=== PATIENT | male | born 1970 | race Caucasian/White ===

== ENCOUNTER 2024-07-07 09:31 | Emergency (ER) | payer OTHER, SELFPAY ==
--- NOTE | ~2024-07-07 | XR_ITS ---
CLINICAL HISTORY: foosh 2 views left forearm Comparison: None Findings: No fracture or dislocation. No periostitis or bony destruction. Normal bone mineraliztion and soft tissues. No radiopaque foreign bodies. Impression: 1. No fractures. Malalignment or bony destructive process left forearm. This document has been electronically signed by: Nikhil Conteh MD on 07/07/2024 11:02:22
--- NOTE | ~2024-07-07 | XR_ITS ---
CLINICAL HISTORY: foosh 3 views left hand Comparison: CR - XR WRIST LT MIN 3V - 07/07/24 09:51 EDT Findings: No fractures, subluxations or dislocations. No periostitis or bony destruction. Joint intervals are preserved. Mild joint space narrowing of the interphalangeal joints. Ulnar styloid perserved. Normal bone mineralization and soft tissues. Carpal bones unremarkable.. No radiopaque foreign body. Impression: 1. No acute fractures or carpal malalignment. This document has been electronically signed by: Nikhil Conteh MD on 07/07/2024 10:58:58
--- NOTE | ~2024-07-07 | XR_ITS ---
CLINICAL HISTORY: fall 4 views left wrist Comparison: None Findings: No carpal bone fractures or carpal malalignment. Radiocarpal joint intact Radial and ulnar styloid preserved. No bony erosive changes. Bone mineralization and soft tissues within normal limits. No radiopaque foreign body. Impression: 1. No acute fractures or carpal malalignment This document has been electronically signed by: Nikhil Conteh MD on 07/07/2024 10:25:48
[2024-07-07 09:35] VITALS: BP 108/72; PULSE 65; RESP 18; TEMP 36.4; O2SAT 100; BMI 18.2
[2024-07-07] MEDS: Ibuprofen 600 MG TABLET PO (09:52)
--- NOTE | 2024-07-07 10:06 | ED_ITS ---
HPI - Extremity Problem General Chief complaint: Extremity Injury, Upper Stated complaint: wrist inj Time Seen by Provider: 07/07/24 09:56 Source: patient, family, RN notes reviewed and old records reviewed Mode of arrival: ambulatory History of Present Illness ED Provider: Kadi Womack PA-C HPI Narrative: 53-year-old male no significant past medical history presenting to the ED complaining of left wrist swelling and pain s/p mechanical fall, FOOSH, while playing basketball around 1500 yesterday. Denies head trauma or LOC. Denies injury to other area. Reports associated paresthesias to and pancreas. Admits to taking oxycodone around midnight last night. Denies fever, chills Related Data Previous Rx's ?Medication ?Instructions ?Recorded acetaminophen 500 mg tablet 500 mg PO Q6H PRN fever or pain 07/07/24 (Tylenol Extra Strength) #14 tabs ibuprofen 800 mg tablet 800 mg PO Q8H PRN pain #14 tabs 07/07/24 oxycodone 5 mg tablet 5 mg PO Q6H PRN pain (scale score 07/07/24 7-10) 3 days #9 tabs Allergies Allergy/AdvReac Type Severity Reaction Status Date / Time No Known Allergies Allergy Verified 07/07/24 09:38 Review of Systems Review of Systems: Yes all other systems are reviewed and are negative Constitutional: Constitutional: Reports as per [facility] Past Medical History Attestation statement: The following information was validated with the patient. Source: old records reviewed Physical Exam Vital Signs: Vital Signs: Last Vital Signs Temp 0 F L 07/07/24 13:05 Pulse 58 07/07/24 13:05 Resp 14 07/07/24 13:05 BP 110/69 07/07/24 13:05 Pulse Ox 97 07/07/24 13:05 O2 Del Method Room Air 07/07/24 13:05 BMI result Body Mass Index 18.2 Const: General: cooperative, healthy appearing and no acute distress Orientation/consciousness: patient oriented x3 Limitations: no limitations HEENT: Head: Yes normal to inspection and Yes atraumatic Ears: hearing grossly normal bilaterally General nose exam: Normal external nose present Face and sinus: Yes normal facial exam Eyes: General: appearance normal, both eyes and all related structures EOM: EOMs intact bilaterally Neck: Neck: Yes normal visual inspection and Yes no meningeal signs Resp: Effort & Inspection: normal respiratory effort and no respiratory distress Cardio: Rate: regular rate Skin: Rashes: no rashes Wounds: no wounds Neuro: General: patient oriented x3, tone normal and no meningeal signs Cranial nerves: Yes CN's II-XII intact bilaterally Gait exam (Neuro): Normal gait present Extrem: Other: + appreciable swelling to left wrist/dis kellie forearm. Superficial abrasion to left palm. + tenderness to distal forearm, wrist, a nd thenar eminence. Neurovascularly intact. No overt snuffbox ttp Unable to give thumbs up, difficulty with [id number] opposition secondary to pain and swelling Left shoulder/humerus and elbow nontender Course Course Course Narrative: XR forearm LT 2V Impression: 1. No fractures. Malalignment or bony destructive process left forearm XR hand LT min 3V Impression: 1. No acute fractures or carpal malalignment. XR wrist LT min 3V Impression: 1. No acute fractures or carpal malalignment > Velcro thumb spica wrist splint applied for comfort / stability. Recommended close orthopedic follow-up Results discussed with patient including worrisome signs and symptoms and strict return precautions, and when to return to the emergency department. They verbalized understanding and feel safe for discharge at this time. Medications Administered Discontinued Medications Generic Name Dose Route Start Last Admin Trade Name Ese PRN Reason Stop Dose Admin Acetaminophen 325 mg 07/07/24 10:13 07/07/24 11:01 Acetaminophen 325 Mg Tablet PO 07/07/24 10:14 325 mg ONCE ONE Administration Ibuprofen 600 mg 07/07/24 09:38 07/07/24 09:52 Ibuprofen 600 Mg Tablet PO 07/07/24 09:39 600 mg ONCE ONE Administration Oxycodone HCl 5 mg 07/07/24 10:12 07/07/24 11:02 Oxycodone Hcl Immed Release 5 Mg Tablet PO 07/07/24 10:13 5 mg ONCE ONE Administration Medical Decision Making Medical Decision Making MDM Narrative: 53-year-old male no significant past medical history presenting to the ED complaining of left wrist swelling and pain s/p mechanical fall, FOOSH, while playing basketball around 1500 yesterday. On exam vital signs stable, NAD, nontoxic appearing, physical exam as noted above. Concern for fracture vs sprain. Lower suspicion for dislocation. No evidence of septic joint/arthritis. Unlikely DVT Plan: X-rays, pain controlled Please refer to course for remaining clinical decision making, interpretation of labs/imaging results, and discussions with consultants and/or family members. Differential Diagnosis Differential Diagnoses: The differential diagnosis associated with the presentation includes As above Independent Interpretation I performed an independent interpretation of an: Plain X-Ray Radiology Impression Discussion of test interpretation with radiology: I have reviewed the radiologist's reading. External Record Review External record reviewed: Inpatient record, Office record, Outpatient record, Prior outpatient labs, Prior outpatient radiology, Primary care record and Outside ED record Tests considered The following testing was considered but not selected: As above Prescription Management I considered prescription management with: Pain Medication Chronic Conditions Patient?s care impacted by: Other Social Determinants Patient?s care significantly limited by Social Determinants of Health including: Other Social Determinant of Health Procedures Orthopedic Splinting/Casting Injury #1: Side: left Upper Extremity Injury Location: wrist Upper Extremity Immobilizer: thumb spica Discharge Plan Discharge Clinical Impression: Sprain of left wrist Patient Disposition: Home, Self-Care Instructions: Wrist Sprain (ED) Additional Instructions: Your x-rays are unremarkable Please wear wrist splint at all times, you may take off to shower and sleep Ice and elevate Take ibuprofen and Tylenol as needed for pain/swelling Oxycodone as an opiate pain medication, take only when pain is severe for the next 3 days It is very important you follow up with Orthopedics. X-rays do not show fra cture however there could be a small hairline fracture that we did not appreciate. If pain persists or worsens or area begins to look infected, is red, swollen, pain is unbearable or warm return to the ED Prescriptions: New ibuprofen 800 mg tablet 800 mg PO Q8H PRN (Reason: pain) Qty: 14 0RF acetaminophen [Tylenol Extra Strength] 500 mg tablet 500 mg PO Q6H PRN (Reason: fever or pain) Qty: 14 0RF oxycodone 5 mg tablet 5 mg PO Q6H PRN (Reason: pain (scale score 7-10)) 3 Days Qty: 9 0RF Rx Instructions: Partial Fill upon patient request. Referrals: [facility] [Provider Group] - 1 week Stand Alone Forms: Work/School Release Interventions: ED Discharge Assessment Last Done: 07/07/24 13:05 Discharge Date/Time: 07/07/24 13:05 Print Language: Spanish
[2024-07-07 10:49] VITALS: BP 100/66; PULSE 58; RESP 14; O2SAT 98
[2024-07-07] MEDS: Acetaminophen 325 MG TABLET PO (11:01)
[2024-07-07] MEDS: oxyCODONE HCl Immed Release 5 MG TABLET PO (11:02)
[2024-07-07 13:00] VITALS: BP 110/69; PULSE 58; RESP 14; O2SAT 97
[2024-07-07 13:05] VITALS: BP 110/69; PULSE 58; RESP 14; TEMP -17.7; TEMP 0; O2SAT 97
== END 2024-07-07 13:05 | disposition home or self-care (01) ==
PROVIDERS: Emergency Provider Emergency Medicine; PCP Internal Medicine
DX: S63.502A Unspecified sprain of left wrist, initial encounter (principal); M25.532 Pain in left wrist; X50.3XXA Overexertion from repetitive movements, initial encounter; Y93.02 Activity, running; Y92.310 Basketball court as the place of occurrence of the external cause; Y99.8 Other external cause status
CPT/HCPCS: 29125; 73090; 73110; 73130; 99283; 99284

== ENCOUNTER → 2024-07-07 09:52 | Outpatient (BNV) | payer OTHER, SELFPAY | PROVIDERS: Emergency Provider Emergency Medicine; PCP Internal Medicine; Visit Provider Radiology Diagnostic Radiology | DX: S69.92XA Unspecified injury of left wrist, hand and finger(s), initial encounter (principal); S59.912A Unspecified injury of left forearm, initial encounter | CPT/HCPCS: 73090; 73110; 73130 ==

== ENCOUNTER 2024-07-16 13:32 | Outpatient (AMB) | payer OTHER, SELFPAY ==
--- NOTE | 2024-07-16 13:49 | MHC.OFFVIS ---
Vital Signs 07/16/24 13:55 Height 6 ft Weight 145 lb BMI 19.7 Handedness Right Intake Visit Reasons: ER f/u: Lt wrist sprain DOI: 07/06/24 Intake Note: Tommy is a 53 year old right hand dominant male who presents today for an emergency department follow up for his left wrist injury s/p fall DOI: 07/06/24. Patient reports falling while playing basketball, landing on his left wrist. [facility] [place] provided him a brace to wear until he followed up with orthopedics. He expresses discomfort if he moves his wrist, discomfort with gripping, squeezing objects has become a challenge for him and he reports stiffness as well. States he has been utilizing his brace so his movement has been restricted. Denies any numbness and tingling in the left wrist. Allergies No Known Allergies Allergy (Verified 07/16/24 13:55) HPI HPI ER f/u: Lt wrist sprain DOI: 07/06/24: Details: Tommy is a 53 year old right hand dominant male who presents today for an emergency department follow up for his left wrist injury s/p fall DOI: 07/06/24. Patient reports falling while playing basketball, landing on his left wrist. [facility] [place] [facility] provided him a brace to wear until he followed up with orthopedics. He expresses discomfort if he moves his wrist, discomfort with gripping, squeezing objects has become a challenge for him and he reports stiffness as well. States he has been utilizing his brace so his movement has been restricted. Denies any numbness and tingling in the left wrist. 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 He initially sought care on Monday due to significant swelling. Prior radiographs were negative for fracture, yet continued tenderness and localized swelling particularly in the anatomical snuff box area suggest a potential scaphoid fracture. Despite subsidence of some swelling, tenderness persists, especially with minor pressure distal to the wrist. Repeat X-rays today still did not clearly show a fracture. There remains potential for an occult scaphoid fracture given the clinical symptoms, although current imaging did not confirm this. His recreational activities, including basketball and pool, are performed with care to avoid triggering further pain, and he remains cautious about lifting weights with the affected hand. Review of Systems - Musculoskeletal: Reports tenderness in the left wrist, especially in the anatomical snuff box area. - Musculoskeletal: Denies significant pain in other areas of the wrist. Systems reviewed and are negative except as per HPI and below Physical Exam - Musculoskeletal- Left wrist examination reveals tenderness in the anatomical snuff box; no visible deformity or significant swelling noted; minor point tenderness noted distally. Results - Radiographs: No clear cortical disruption observed; potential subtle fracture not evident on X-rays. Procedure - Informed consent obtained for repeat radiographs of the left wrist to reassess for potential fractures, including scaphoid and radial styloid involvement. Plan The current plan is to manage the suspected scaphoid fracture conservatively with immobilization using a more supportive Velcro thumb spica splint. The patient should avoid weight-bearing activities with the affected wrist. Follow-up is planned in two weeks with repeat X-rays and evaluation of symptoms; an MRI may be considered at that point if tenderness persists. The patient is instructed to limit use of the left hand to prevent aggravation. Patient was informed and verbally consented to the use of an ambient scribe for clinic note documentation during this visit. Discussion Notes I explained the concerns of a potential scaphoid fracture with the patient and our conservative management approach utilizing a supportive Velcro thumb spica splint. Acknowledged was the limited nature of initial radiographic imaging in detecting such fractures. I discussed potential risks such as compromised blood supply leading to avascular necrosis if left untreated, and the need for further imaging if symptoms do not resolve. I reinforced the importance of splint compliance and activity modification to aid healing, with follow-up in two weeks for reassessment. An MRI might be proposed if tenderness remains. The patient acknowledged understanding the plan and agreed with the approach. Patient Instructions - Wear the Velcro thumb spica splint as directed, removing only for bathing. - Avoid lifting anything heavier than a cell phone with the left hand. - Refrain from activities that cause pain or require weight-bearing on the left wrist. - Plan a follow-up appointment in two weeks for reassessment and possible further imaging. - Contact the clinic sooner if symptoms worsen or new symptoms arise. Orders: Orders XR wrist LT w scaphoid 07/16/24 M25.532 - Pain in left wrist Medications: Discontinued acetaminophen (Tylenol Extra Strength) Discontinued Reason: Patient no longer taking 500 mg PO Q6H PRN 14 tabs 0RF fever or pain ibuprofen Discontinued Reason: Patient Completed Course 800 mg PO Q8H PRN 14 tabs 0RF pain oxycodone Partial Fill upon patient request. Discontinued Reason: Patient no longer taking 5 mg PO Q6H 3 days PRN 9 tabs 0RF pain (scale score 7-10) Coding Level of Care Code New Pt Level 3 (50989) Diagnoses Tenderness of anatomical snuffbox M79.643
[2024-07-16 13:55] VITALS: BMI 19.7
== END 2024-07-16 14:54 | disposition home or self-care (01) ==
LOC: HO.HOS 13:32
PROVIDERS: PCP Internal Medicine
DX: M79.642 Pain in left hand (principal); S60.212A Contusion of left wrist, initial encounter
CPT/HCPCS: 99203

== ENCOUNTER 2024-07-16 13:32 | Outpatient (REF) | payer OTHER, SELFPAY ==
--- NOTE | ~2024-07-16 | XR_ITS ---
EXAMINATION: XR WRIST, LEFT CLINICAL INFORMATION: M25.532 - Pain in left wrist COMPARISON: July 07, 2024 TECHNIQUE: PA, lateral, Spot scaphoid and oblique views of the left wrist. FINDINGS: There is no joint space narrowing or diastases. There is no carpal row step-off. No degenerative changes are evident. No fracture line seen. XR/XR wrist LT w scaphoid IMPRESSION: Unremarkable left wrist. If there is acute snuffbox tenderness, scaphoid fractures may be occult, in which case, follow-up x-ray in 7-10 days. Electronically signed by: Toi Villalobos MD 07/16/2024 05:31 PM EDT
== END 2024-07-16 13:33 | disposition home or self-care (01) ==
LOC: HO.HOSX 13:32
PROVIDERS: PCP Internal Medicine
DX: M25.532 Pain in left wrist (principal)
CPT/HCPCS: 73110

== ENCOUNTER → 2024-07-16 14:26 | Outpatient (BNV) | payer OTHER, SELFPAY | PROVIDERS: PCP Internal Medicine; Visit Provider Radiology Diagnostic Radiology | DX: M25.532 Pain in left wrist (principal) | CPT/HCPCS: 73110 ==

== ENCOUNTER 2024-07-31 12:47 | Outpatient (REF) | payer OTHER, SELFPAY ==
--- NOTE | ~2024-07-31 | XR_ITS ---
EXAMINATION: XR WRIST, LEFT CLINICAL INFORMATION: M25.532 - Pain in left wrist COMPARISON: None available. TECHNIQUE: PA bilateral, lateral, spot navicular, oblique views of the left wrist. FINDINGS: There is focal osteopenia noted in the ulnar aspect of the fifth carpometacarpal joint, bilaterally. Mild osteopenia is also noted along the distal aspect of the scaphoid on the spot view. There is no joint diastases, osteophytes, or joint space narrowing. No fracture line is apparent. XR/XR wrist LT w scaphoid IMPRESSION: Possible active erosions from an inflammatory arthropathy such as rheumatoid arthritis. Electronically signed by: Toi Villalobos MD 07/31/2024 02:03 PM EDT
== END 2024-07-31 12:48 | disposition home or self-care (01) ==
LOC: HO.XRAY 12:47
PROVIDERS: PCP Internal Medicine
DX: M25.532 Pain in left wrist (principal)
CPT/HCPCS: 73110

== ENCOUNTER → 2024-07-31 12:48 | Outpatient (BNV) | payer OTHER, SELFPAY | PROVIDERS: PCP Internal Medicine; Visit Provider Radiology Diagnostic Radiology | DX: M25.532 Pain in left wrist (principal) | CPT/HCPCS: 73110 ==

== ENCOUNTER 2024-07-31 13:15 | Outpatient (AMB) | payer OTHER, SELFPAY ==
--- NOTE | 2024-07-31 13:26 | MHC.OFFVIS ---
Vital Signs 07/31/24 13:28 Height 6 ft Weight 145 lb BMI 19.7 Handedness Right Intake Visit Reasons: OV-Lt wrist sprain DOI: 07/06/24 Intake Note: Tommy is 53 year old right hand dominant male who presents today for a follow up visit for his tenderness of anatomical snuffbox of the left hand s/p fall DOI: 07/06/24. Patient reports he has been wearing his brace daily except for a shower. He feels improvement in the left hand, can open a jar now without pain. States he does not think he is ready to golf yet. Denies numbness and tingling. Allergies No Known Allergies Allergy (Verified 07/31/24 13:28) HPI HPI OV-Lt wrist sprain DOI: 07/06/24: Details: Tommy is 53 year old right hand dominant male who presents today for a follow up visit for his tenderness of anatomical snuffbox of the left hand s/p fall DOI: 07/06/24. Patient reports he has been wearing his brace daily except for a shower. He feels improvement in the left hand, can open a jar now without pain. Continues to report pain in thd dorsal and ulnar aspect of the L hand and wrist, no further pain at the base of the L thumb. States he does not think he is ready to golf yet. Denies numbness and tingling. 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 Neuro: Normal sensation of the tips of all digits of the left hand at this time Vascular: Cap refill brisk Pain: Very mild tenderness to palpation of the L dorsal and ulnar aspect of the wrist, improved from previous visit No further tenderness to palpation of the L anatomical snuffbox or scaphoid tubercle Some pain with ROM of the L hand in the same area of tenderness ROM: Patient is able to make a closed fist and extend all digits of the L hand, reports some discomfort with flexion Skin: No lacerations or abrasions. General: No ecchymosis, erythema, or evidence of infection. Psych: Appears grossly normal Affect normal Attitude cooperative Office Procedures AMB Fracture Care Fracture Billing Code: Fracture Billing Code Results Reviewed Results Reviewed: X-rays obtained in the office today and independently reviewed by me, Grzegorz Garcia PA-C, demonstrate small questionable area of lucency in the hamate concerning for potential nondisplaced fracture Assessment & Plan Assessment & Plan (1) Fracture of hamate of left wrist: Code(s): S62.143A - Displaced fracture of body of hamate [unciform] bone, unspecified wrist, initial encounter for closed fracture Category: Medical Plan 1. Nondisplaced fracture of left hamate Date of injury 07/06/2024 Patient is educated about this condition Patient is educated about the typical recovery course At this time, patient is informed he should remain on a Velcro wrist splint whenever awake to encourage nailing of the fracture Patient understands this and is amenable to this plan Patient is educated that can, the Velcro wrist splint to begin some gentle range of motion of the left hand and wrist 2-3 lb weight limit in the left hand until follow-up Follow-up in 3-4 weeks with repeat x-rays for reassessment, sooner with any acute concerns Orders: Orders XR wrist LT w scaphoid Today M25.532 - Pain in left wrist Coding Level of Care Code Est Pt Level 3 (77384) Diagnoses Fracture of hamate of left wrist S62.143A CPT Codes Fracture Care - Fracture Billing Code: Fracture Billing Code ([id number])
[2024-07-31 13:28] VITALS: BMI 19.7
== END 2024-07-31 13:39 | disposition home or self-care (01) ==
LOC: HO.HOS 13:15
PROVIDERS: PCP Internal Medicine
DX: S62.143A Displaced fracture of body of hamate [unciform] bone, unspecified wrist, initial encounter for closed fracture (principal)
CPT/HCPCS: 99213

== ENCOUNTER 2024-08-14 15:21 | Outpatient (AMB) | payer OTHER, SELFPAY ==
--- NOTE | 2024-08-14 15:30 | A.OFFVIS_ITS ---
Vital Signs 08/14/24 15:34 Height 6 ft Weight 145 lb BMI 19.7 Handedness Right Intake Visit Reasons: OV-Lt wrist sprain DOI: 07/06/24 Intake Note: Tommy is 53 year old right hand dominant male who presents today for a follow up visit for his fracture of hamate of left wrist s/p fall DOI: 07/06/24. Patient reports pain if he overuses his hand, with use of screwdrivers, and extension. Denies numbness and tingling. Allergies No Known Allergies Allergy (Verified 08/14/24 15:34) HPI HPI OV-Lt wrist sprain DOI: 07/06/24: Details: Tommy is 53 year old right hand dominant male who presents today for a follow up visit for his fracture of hamate of left wrist s/p fall DOI: 07/06/24. Patient reports very mild pain if he overuses his hand, with use of screwdrivers, and extension. Patient reports that his pain has improved dramatically from previous evaluation. Denies any further pain at the base of the thumb. Denies numbness and tingling. 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 Neuro: Normal sensation of the tips of all digits of the left hand at this time Vascular: Cap refill brisk Pain: Minimal tenderness to palpation of the L dorsal and ulnar aspect of the wrist, improved from previous visit No further tenderness to palpation of the L anatomical snuffbox or scaphoid tubercle No tenderness to palpation of the hamate Some pain with ROM of the L hand in the same area of tenderness ROM: Patient is able to make a closed fist and extend all digits of the L hand, reports some discomfort with flexion Skin: No lacerations or abrasions. General: No ecchymosis, erythema, or evidence of infection. Psych: Appears grossly normal Affect normal Attitude cooperative Results Reviewed Results Reviewed: X-rays obtained in the office today and independently reviewed by me, Grzegorz Garcia PA-C, demonstrate small questionable area of lucency in the hamate concerning for potential nondisplaced fracture Assessment & Plan Assessment & Plan (1) Fracture of hamate of left wrist: Code(s): S62.143A - Displaced fracture of body of hamate [unciform] bone, unspecified wrist, initial encounter for closed fracture Category: Medical Plan 1. Nondisplaced fracture of left hamate Date of injury 07/06/2024 Patient is educated about this condition Patient is educated about the typical recovery course At this time, patient is informed he should remain on a Velcro wrist splint with daytime activities for the next 3-4 weeks Patient understands this and is amenable to this plan Patient is educated that can, the Velcro wrist splint to begin some gentle range of motion of the left hand and wrist 2-3 lb weight limit in the left hand until follow-up Follow-up as needed with any acute concerns Coding Level of Care Code Global (86379) Diagnoses Fracture of hamate of left wrist S62.143A
[2024-08-14 15:34] VITALS: BMI 19.7
== END 2024-08-14 15:44 | disposition home or self-care (01) ==
LOC: HO.HOS 15:22
PROVIDERS: PCP Internal Medicine
DX: S62.143A Displaced fracture of body of hamate [unciform] bone, unspecified wrist, initial encounter for closed fracture (principal)
CPT/HCPCS: 99213